=== PATIENT | male | born 1970 | race Caucasian/White ===

== ENCOUNTER → 2018-05-02 | Outpatient (CLI) | payer BC, OTHER ==
[~2018-05-02] MED LIST: MISCCAP80 PO; MULT-506 PO; NUTR1000 PO; PRED1SUS3 OPR
== END | disposition home or self-care (01) ==
LOC: C.RDSM 16:08
PROVIDERS: ATTEND Family Medicine Sports Medicine
DX: M54.5 Low back pain (principal)